=== PATIENT | female | born 1995 | race African-American/Black ===

== ENCOUNTER → 2017-02-18 | Outpatient (CLI) | payer MEDICAID ==
[2015-01-23 08:41] VITALS: BMI 31.5
[~2017-02-18] MED LIST: ABILIFY; ACYC800T99 PO; CHOL100059 PO; ESCI5TAB10 PO; IBUP600T22 PO; LOR5 PO; METH-543 PO; MIRT-1 PO; NO MEDS; NO RTN MEDS; OMEP40CA48 PO; PNV1TABL70 PO; PRED-1 PO; PREDNISON; TRAM-420 PO; TRAZ-156 PO; VENL150C61 PO
[2017-02-18 13:50] LABS: PLATELET COUNT, AUTOMATED 244 K/uL (150-450)
== END ==
LOC: LAB 13:20
PROVIDERS: ATTEND Registered Nurse Psychiatric/Mental Health
DX: F33.2 Major depressive disorder, recurrent severe without psychotic features (principal)
CPT/HCPCS: 36415; 82040; 82247; 82310; 82374; 82435; 82565; 82947; 84075; 84132; 84155; 84295; 84439; 84443; 84450; 84460; 84481; 84520; 84703; 85025

== ENCOUNTER 2017-06-28 13:25 | Emergency (ER) | payer MEDICAID ==
[2015-01-23 08:41] VITALS: Wt 81.6 kg
[2017-06-28] MEDS ORDERED: VENL150C61 PO (13:31)
--- NOTE | 2017-06-28 13:38 | ER Report ---
History and Physical Time Seen By MD: 13:37 Hx. of Stated Complaint: PT REPORTS DIZZINESS, CHEST PRESSURE, SOB/DIFFICULTY BREATHING, AND ALMOST PASSING OUT WHEN SHE PUTS HER ARMS OVER HER HEAD HPI/ROS CHIEF COMPLAINT: Chest pain, dizziness, not feeling well HISTORY OF PRESENT ILLNESS: 21-year-old female patient presents to emergency room with complaint of chest pain, dizziness, not feeling well. Patient states this been going on and really most of her life. She states that seems to been getting worse over the last several months. She states that today she just decided that she was going to be checked out. She states her father did drive her into the emergency room for further evaluation. Patient states that she has chest pain. She states that seems to be the worse when she stands up. She states that she is able to run without any difficulties. She denies having any nausea, vomiting or diarrhea. Patient states she is eating and drinking without any difficulties. Patient states she also feels very lightheaded. She states that also seems to occur when she stands up. She states that if she raises her hands above her head that the chest pain and lightheadedness we'll get worse. She states she's never seen her primary care provider for this. REVIEW OF SYSTEMS: Respiratory: No cough, no dyspnea. Cardiovascular: As noted above Gastrointestinal: No vomiting, no abdominal pain. Musculoskeletal: No back pain. Allergies: Coded Allergies: diphenhydramine HCl (Verified Allergy, Unknown, HYPERACTIVE, 06/28/17) Home Meds Reported Medications Venlafaxine Hcl (EFFEXOR XR) 150 Mg Cap.er.24h, 225 MG PO QDAY 06/28/17 Discontinued Reported Medications Venlafaxine Hcl (EFFEXOR XR) 150 Mg Cap.er.24h, 150 MG PO QDAY 01/28/15 Discontinued Scripts Ibuprofen (IBUPROFEN) 600 Mg Tablet, 1 TAB PO Q6H, #12 TAB Prov:ALVARADO MEJIA RESPIRATORY THERAPY ASSISTANT-BC 01/11/17 Past Medical/Surgical History Patient has a past medical history of heart murmur, alcohol use, anxiety, depression, suicide attempt. Patient has surgical history of tubes in ears. Reviewed Nurses Notes: Yes Hx Smoking: No Smoking Status: Never Smoker Exposure to Second Hand Smoke?: No Hx Alcohol Use: Yes Constitutional Vital Sign - Last 24 Hours 06/28/17 06/28/17 06/28/1719/18 13:29 13:31 13:35 13:45 Temp 99.2 Pulse 80 72 67 Resp 16 15 25 B/P (MAP) 131/80 (97) 131/80 Pulse Ox 96 97 82 O2 Delivery Room Air 06/28/17 06/28/17 06/28/17 06/28/17 13:55 14:00 14:05 14:15 Pulse 79 68 Resp 9 48 11 B/P (MAP) 128/69 (88) Pulse Ox 84 94 94 06/28/17 06/28/17 06/28/17 06/28/17 14:25 14:30 14:35 14:40 Pulse 73 75 Resp 28 6 B/P (MAP) 118/73 (88) Pulse Ox 93 95 95 06/28/17 06/28/17 06/28/17 06/28/17 15:00 15:10 15:20 15:25 Pulse 85 76 79 78 B/P (MAP) 127/80 (96) Pulse Ox 91 95 95 94 06/28/17 06/28/17 06/28/17 15:25 15:30 15:35 Pulse 78 72 78 B/P (MAP) 122/77 (92) Pulse Ox 94 96 94 Intake and Output 06/28/17 06/28/17 06/29/17 15:00 23:00 07:00 Intake Total 1000 ml Balance 1000 ml Physical Exam General Appearance: The patient is alert, has no immediate need for airway protection and no current signs of toxicity. Respiratory: Chest is non tender, lungs are clear to auscultation. Cardiac: regular rate and rhythm Gastrointestinal: Abdomen is soft and non tender, no masses, bowel sounds normal. Musculoskeletal: Neck: Neck is supple and non tender. Extremities have full range of motion and are non tender. Skin: No rashes or lesions. DIFFERENTIAL DIAGNOSIS: After history and physical exam differential diagnosis was considered for chest pain including but not limited to myocardial ischemia, pericarditis pulmonary embolus, chest wall pain, pleural inflammation and pulmonary infectious causes. Medical Decision Making Data Points Result Diagram: 06/28/17 1402 06/28/17 1402 Laboratory Hematology Test 06/28/17 14:00 06/28/17 14:02 Urine Color Yellow Urine Clarity Clear Urine pH 6.0 pH (4.8-9.5) Urine Specific Fraser 1.020 Urine Protein Negative mg/dL (NEGATIVE) Urine Glucose (UA) Negative mg/dL (NEGATIVE) Urine Ketones Negative mg/dL (NEGATIVE) Urine Blood Negative (NEGATIVE) Urine Nitrite Negative (NEGATIVE) Urine Bilirubin Negative (NEGATIVE) Urine Urobilinogen Negative mg/dL (0.2-1.9) Urine Leukocyte Esterase Small (NEGATIVE) Urine RBC 1 /HPF (0-2/HPF) Urine WBC 4 /HPF (0-5/HPF) Urine Squamous Epithelial Cells Many /LPF (</=FEW) Urine Bacteria Negative /HPF (NONE-FEW) Urine Mucus None /HPF (NONE-FEW) Red Blood Count 4.94 M/uL (4.17-5.56) Mean Corpuscular Volume 87.9 fL (80.0-96.0) Mean Corpuscular Hemoglobin 29.5 pg (26.0-33.0) Mean Corpuscular Hemoglobin Concent 33.5 g/dL (32.0-36.0) Red Cell Distribution Width 13.2 % (11.5-14.5) Mean Platelet Volume 7.7 fL (7.2-11.1) Neutrophils (%) (Auto) 51.1 % (39.4-72.5) Lymphocytes (%) (Auto) 31.8 % (17.6-49.6) Monocytes (%) (Auto) 9.2 % (4.1-12.4) Eosinophils (%) (Auto) 6.8 % (0.4-6.7) Basophils (%) (Auto) 1.1 % (0.3-1.4) Nucleated RBC Relative Count (auto) 0.1 /100WBC Neutrophils # (Auto) 3.2 K/uL (2.0-7.4) Lymphocytes # (Auto) 2.0 K/uL (1.3-3.6) Monocytes # (Auto) 0.6 K/uL (0.3-1.0) Eosinophils # (Auto) 0.4 K/uL (0.0-0.5) Basophils # (Auto) 0.1 K/uL (0.0-0.1) Nucleated RBC Absolute Count (auto) 0.01 K/uL Sodium Level 140 mmol/L (137-145) Potassium Level 3.9 mmol/L (3.5-5.0) Chloride Level 104 mmol/L (98-107) Carbon Dioxide Level 24 mmol/L (22-31) Blood Urea Nitrogen 15 mg/dl (7-18) Creatinine 0.80 mg/dl (0.52-1.04) Glomerular Filtration Rate Calc > 60.0 Random Glucose 94 mg/dl (75-110) Calcium Level 9.2 mg/dl (8.4-10.2) Total Bilirubin 0.2 mg/dl (0.2-1.3) Aspartate Amino Transf (AST/SGOT) 23 U/L (0-35) Alanine Aminotransferase (ALT/SGPT) 30 U/L (0-56) Alkaline Phosphatase 74 U/L (0-126) Troponin I < 0.012 ng/ml Total Protein 7.5 gm/dl (6.3-8.2) Albumin 4.0 g/dl (3.5-5.0) Human Chorionic Gonadotropin, Qual Negative (NEGATIVE) Chemistry Test 06/28/17 14:00 06/28/17 14:02 Urine Color Yellow Urine Clarity Clear Urine pH 6.0 pH (4.8-9.5) Urine Specific Fraser 1.020 Urine Protein Negative mg/dL (NEGATIVE) Urine Glucose (UA) Negative mg/dL (NEGATIVE) Urine Ketones Negative mg/dL (NEGATIVE) Urine Blood Negative (NEGATIVE) Urine Nitrite Negative (NEGATIVE) Urine Bilirubin Negative (NEGATIVE) Urine Urobilinogen Negative mg/dL (0.2-1.9) Urine Leukocyte Esterase Small (NEGATIVE) Urine RBC 1 /HPF (0-2/HPF) Urine WBC 4 /HPF (0-5/HPF) Urine Squamous Epithelial Cells Many /LPF (</=FEW) Urine Bacteria Negative /HPF (NONE-FEW) Urine Mucus None /HPF (NONE-FEW) White Blood Count 6.3 k/uL (4.5-11.0) Red Blood Count 4.94 M/uL (4.17-5.56) Hemoglobin 14.6 g/dL (12.0-16.0) Hematocrit 43.4 % (34.0-47.0) Mean Corpuscular Volume 87.9 fL (80.0-96.0) Mean Corpuscular Hemoglobin 29.5 pg (26.0-33.0) Mean Corpuscular Hemoglobin Concent 33.5 g/dL (32.0-36.0) Red Cell Distribution Width 13.2 % (11.5-14.5) Platelet Count 257 K/uL (150-450) Mean Platelet Volume 7.7 fL (7.2-11.1) Neutrophils (%) (Auto) 51.1 % (39.4-72.5) Lymphocytes (%) (Auto) 31.8 % (17.6-49.6) Monocytes (%) (Auto) 9.2 % (4.1-12.4) Eosinophils (%) (Auto) 6.8 % (0.4-6.7) Basophils (%) (Auto) 1.1 % (0.3-1.4) Nucleated RBC Relative Count (auto) 0.1 /100WBC Neutrophils # (Auto) 3.2 K/uL (2.0-7.4) Lymphocytes # (Auto) 2.0 K/uL (1.3-3.6) Monocytes # (Auto) 0.6 K/uL (0.3-1.0) Eosinophils # (Auto) 0.4 K/uL (0.0-0.5) Basophils # (Auto) 0.1 K/uL (0.0-0.1) Nucleated RBC Absolute Count (auto) 0.01 K/uL Glomerular Filtration Rate Calc > 60.0 Calcium Level 9.2 mg/dl (8.4-10.2) Total Bilirubin 0.2 mg/dl (0.2-1.3) Aspartate Amino Transf (AST/SGOT) 23 U/L (0-35) Alanine Aminotransferase (ALT/SGPT) 30 U/L (0-56) Alkaline Phosphatase 74 U/L (0-126) Troponin I < 0.012 ng/ml Total Protein 7.5 gm/dl (6.3-8.2) Albumin 4.0 g/dl (3.5-5.0) Human Chorionic Gonadotropin, Qual Negative (NEGATIVE) Urinalysis Test 06/28/17 14:00 Urine Color Yellow Urine Clarity Clear Urine pH 6.0 pH (4.8-9.5) Urine Specific Fraser 1.020 Urine Protein Negative mg/dL (NEGATIVE) Urine Glucose (UA) Negative mg/dL (NEGATIVE) Urine Ketones Negative mg/dL (NEGATIVE) Urine Blood Negative (NEGATIVE) Urine Nitrite Negative (NEGATIVE) Urine Bilirubin Negative (NEGATIVE) Urine Urobilinogen Negative mg/dL (0.2-1.9) Urine Leukocyte Esterase Small (NEGATIVE) Urine RBC 1 /HPF (0-2/HPF) Urine WBC 4 /HPF (0-5/HPF) Urine Squamous Epithelial Cells Many /LPF (</=FEW) Urine Bacteria Negative /HPF (NONE-FEW) Urine Mucus None /HPF (NONE-FEW) EKG/Imaging EKG Interpretation 12 lead EKG: Rhythm: Sinus rhythm with sinus arrhythmia [place]: normal QRS: normal ST segments: normal Imaging CHEST PA AND LAT History: Dizziness FINDINGS: Comparison studies: None. Tubes and Lines: None. Lungs and pleura: Well aerated. No evidence of focal consolidation or pleural effusions. Mediastinum: normal. Cardiac silhouette: normal . Osseous structures: Unremarkable for age . IMPRESSION: Normal chest Report Dictated By: Oswaldo Mercado MD at 06/28/2017 3:17 PM Report E-Signed By: Oswaldo Mercado MD at 06/28/2017 3:17 PM EXAMINATION: CT HEAD WITHOUT CONTRAST COMPARISON: None available HISTORY: Dizziness. PROCEDURE: Noncontrast CT from the vertex through the skull base. One of the following dose optimization techniques was utilized in the performance of this exam: Automated exposure control; adjustment of the mA and/or kV according to the patient's size; or use of an iterative reconstruction technique. Specific details can be referenced in the facility's radiology CT exam operational policy. FINDINGS: Brain volume: Age-appropriate. Hemorrhage/extra-axial fluid: None. Mass effect/midline shift/edema: None. Ischemia: Armijo-white differentiation is preserved. Ventricles and basal cisterns: Within normal limits. Posterior fossa: Negative. Vessels: Negative. Calvarium, skull base, and scalp: Negative. Visualized sinuses and orbits: Within normal limits. IMPRESSION: Negative age-appropriate noncontrast head CT. Report Dictated By: Laci Driver MD at 06/28/2017 3:14 PM Report E-Signed By: Laci Driver MD at 06/28/2017 3:18 PM ED Course/Re-evaluation ED Course Patient was admitted to exam room, history and physical were obtained. Differential diagnoses were considered. On examination lungs are clear, heart is regular. A CBC, CMP, troponin, EKG, chest x-ray, CT scan of the head were done. The lab results were negative. EKG showed normal sinus rhythm, chest x- ray and CT scan of the head were also negative. I discussed findings with the patient. Patient states that she is frustrated that she's had these symptoms for years and have never found anything wrong with her. I informed her that I do not believe that there is not anything wrong, however there is nothing that needs emergent attention at this time. We will go ahead and have her follow-up with her primary care provider. She is return to emergency room if condition worsens. She is to increase her fluid intake, and be slower when she stands up. Patient verbalized understanding and agreement with plan. Decision to Disposition Date: June 28, 2017 Decision to Disposition Time: 15:25 Depart Departure Latest Vital Signs Vital Signs Date Time Temp Pulse Resp B/P (MAP) Pulse Ox O2 Delivery O2 Flow Rate FiO2 06/28/17 15:35 78 94 06/28/17 15:30 122/77 (92) 06/28/17 14:35 6 06/28/17 13:31 99.2 Room Air Impression: Primary Impression: Chest pain Additional Impression: Dizziness Condition: Improved Disposition: HOME OR SELF-CARE Patient Instructions: Chest Pain (ED) Additional Instructions: Increase fluid intake. Get plenty of rest. Try getting up slowly and see if we can avoid the dizziness. Follow up with your primary care provider in the next week. Return to the ER if condition worsens. Problem Qualifiers Primary Impression: Chest pain Chest pain type: other chest pain Qualified Codes: R07.89 - Other chest pain ZENAIDA DUMONT June 28, 2017 13:38
[2017-06-28] MEDS ORDERED: NS(*) 0.9% 1000 ML BAG 1,000 ML IV ONE (13:45)
[2017-06-28 14:14] LABS: PLATELET COUNT, AUTOMATED 257 K/uL (150-450)
--- NOTE | 2017-06-28 14:57 | EKG ---
FACILITY: [facility] - [place] PATIENT NAME: BRIDGER DIAZ : [id number] MR: [id number] V: [id number] EXAM DATE: ORDERING PHYSICIAN: ZENAIDA DUMONT TECHNOLOGIST: VALENTÍN Test Reason : CP Blood Pressure : / mmHG Vent. Rate : 063 BPM Atrial Rate : 063 BPM P-R Int : 136 ms QRS Dur : 082 ms QT Int : 378 ms P-R-T Axes : 015 067 037 degrees QTc Int : 386 ms Sinus rhythm with marked sinus arrhythmia Otherwise normal ECG No previous ECGs available Confirmed by LUDA MAYBERRY ([id number]) on 06/29/2017 6:41:09 AM Referred By: JULIA Confirmed By:LUDA MAYBERRY
--- NOTE | 2017-06-28 15:22 | RADIOLOGY IMAGING REPORT ---
[place] [facility] [place] NAME: Caitie Monterroso : 1995 MR: [id number] V: [id number] EXAM DATE: ORDERING PHYSICIAN: ZENAIDA DUMONT TECHNOLOGIST: Location: [facility] [place] Patient: Caitie Monterroso : 1995 Visit/Account:[id number] Date of Sevice: 06/28/2017 CHEST PA AND LAT History: Dizziness FINDINGS: Comparison studies: None. Tubes and Lines: None. Lungs and pleura: Well aerated. No evidence of focal consolidation or pleural effusions. Mediastinum: normal. Cardiac silhouette: normal . Osseous structures: Unremarkable for age . IMPRESSION: Normal chest Report Dictated By: Oswaldo Mercado MD at 06/28/2017 3:17 PM Report E-Signed By: Oswaldo Mercado MD at 06/28/2017 3:17 PM WSN:[id number]
--- NOTE | 2017-06-28 15:22 | RADIOLOGY IMAGING REPORT ---
FACILITY: [facility] PATIENT NAME: Caitie Monterroso : 1995 MR: [id number] V: [id number] EXAM DATE: ORDERING PHYSICIAN: ZENAIDA DUMONT TECHNOLOGIST: Location: [facility] - [place] Patient: Caitie Monterroso : 1995 Visit/Account:[id number] Date of Sevice: 06/28/2017 EXAMINATION: CT HEAD WITHOUT CONTRAST COMPARISON: None available HISTORY: Dizziness. PROCEDURE: Noncontrast CT from the vertex through the skull base. One of the following dose optimizat ion techniques was utilized in the performance of this exam: Automated exposure control; adjustment o f the mA and/or kV according to the patient's size; or use of an iterative reconstruction technique. Specific details can be referenced in the facility's radiology CT exam operational policy. FINDINGS: Brain volume: Age-appropriate. Hemorrhage/extra-axial fluid: None. Mass effect/midline shift/edema: None. Ischemia: Armijo-white differentiation is preserved. Ventricles and basal cisterns: Within normal limits. Posterior fossa: Negative. Vessels: Negative. Calvarium, skull base, and scalp: Negative. Visualized sinuses and orbits: Within normal limits. IMPRESSION: Negative age-appropriate noncontrast head CT. Report Dictated By: Laci Driver MD at 06/28/2017 3:14 PM Report E-Signed By: Laci Driver MD at 06/28/2017 3:18 PM WSN:[id number]
[2017-06-28 15:30] VITALS: BP 122/77
== END 2017-06-28 15:27 | disposition home or self-care (01) ==
LOC: ER 13:43
DX: R07.89 Other chest pain (principal); R42 Dizziness and giddiness
CPT/HCPCS: 70450; 71046; 81001; 84484; 84703; 85025; 93005; 96360; 99284; J7030; 82040; 82247; 82310; 82374; 82435; 82565; 82947; 84075; 84132; 84155; 84295; 84450; 84460; 84520

== ENCOUNTER → 2017-07-30 | Outpatient (CLI) | payer MEDICAID ==
[2015-01-23 08:41] VITALS: BMI 31.5
--- NOTE | 2017-07-30 14:07 | RADIOLOGY IMAGING REPORT ---
FACILITY: [facility] - [place] PATIENT NAME: Caitie Monterroso : 1995 MR: [id number] V: [id number] EXAM DATE: ORDERING PHYSICIAN: [facility] TECHNOLOGIST: Location: [facility] Patient: Caitie Monterroso : 1995 Visit/Account:[id number] Date of Sevice: 07/30/2017 Exam type: VENOUS DOPP UPPER BILAT EXTREM History: Thoracic outlet syndrome Comparison: None. Findings: The upper extremity veins were imaged bilaterally including the internal jugular veins, the subclavia n veins, axillary veins, the basilic veins, the brachial veins, cephalic veins, the ulnar veins and t he radial veins revealing no evidence intraluminal thrombi. The veins were compressible and demonstr ated augmentation IMPRESSION: 1. No sonographic evidence of DVT involving the upper extremity veins Report Dictated By: Maureen Ferguson MD at 07/30/2017 1:56 PM Report E-Signed By: Maureen Ferguson MD at 07/30/2017 2:02 PM WSN:[email or web address]
--- NOTE | 2017-07-30 14:10 | RADIOLOGY IMAGING REPORT ---
FACILITY: [facility] PATIENT NAME: Caitie Monterroso : 1995 MR: [id number] V: [id number] EXAM DATE: ORDERING PHYSICIAN: [facility] TECHNOLOGIST: Location: [facility] - [place] Patient: Caitie Monterroso : 1995 Visit/Account:[id number] Date of Sevice: 07/30/2017 Exam type: ARTERIAL BILATERAL UPPER EXT History: Thoracic outlet syndrome Comparison: None. Findings: Triphasic waveforms are seen throughout the upper extremity arterial tree bilaterally other than biph asic waveform in the distal left radial and ulnar arteries. The peak systolic velocities in centimeters per second are as follows Right subclavian artery 87.6 Right axillary artery 43.5 Right brachial artery proximally 65.4, middle 80.7 distal 121 Right radial artery proximally 46.2 distally 46.6 Right ulnar artery proximally 35.7, distally 36.8 Left subclavian artery 82.3 Left x-ray artery 57.2 Left brachial artery proximally 61.5, middle 107, distally 103 Left radial artery proximally 53.1 and distally 41.3 Left ulnar artery 42 proximally and 24.8 distally IMPRESSION: 1. Triphasic waveform seen throughout the upper extremity arterial tree bilaterally other than bipha sic waveforms in the distal left radial and ulnar arteries. Report Dictated By: Maureen Ferguson MD at 07/30/2017 2:02 PM Report E-Signed By: Maureen Ferguson MD at 07/30/2017 2:06 PM WSN:[email or web address]
== END ==
LOC: US 07:04
PROVIDERS: ATTEND Internal Medicine
DX: G54.0 Brachial plexus disorders (principal)
CPT/HCPCS: 93930; 93970

== ENCOUNTER → 2017-08-19 | Outpatient (CLI) | payer MEDICAID ==
[2015-01-23 08:41] VITALS: BMI 31.5
== END ==
LOC: RAD 07:14
PROVIDERS: ATTEND Internal Medicine Cardiovascular Disease
DX: R07.9 Chest pain, unspecified (principal)
CPT/HCPCS: 93306

== ENCOUNTER 2017-08-30 17:19 | Emergency (ER) | payer MEDICAID ==
[2015-01-23 08:41] VITALS: Wt 81.6 kg
[~2017-08-30 17:19] MED LIST changes: -TRAZ-156 PO; +TRAZ50TA34 PO
--- NOTE | 2017-08-30 17:21 | ER Report ---
History and Physical Time Seen By MD: 17:20 HPI/ROS CHIEF COMPLAINT: shoulder dislocation HISTORY OF PRESENT ILLNESS: PT states that a few years ago she injured her right rotator cuff. Since that injury her r shoulder dislocates easily. Pt states she usually can put it back into place on her own. Today has had pain in her shoulder and now feels it is dislocated. pt is unable to elevate her r shoulder secondary to pain. pt has full range of motion of her fingers and her lower arm from elbow down. Pt state she is is ambidextrous. pt recalls no new trauma today. REVIEW OF SYSTEMS: Constitutional: No fever, no chills. Eyes: No discharge. ENT: No sore throat. Cardiovascular: No chest pain, no palpitations. Respiratory: No cough, no shortness of breath. Gastrointestinal: No abdominal pain, no vomiting. Genitourinary: No hematuria. Musculoskeletal: No back pain, + r shoulder pain Skin: No rashes. Neurological: No headache, no numbness Allergies: Coded Allergies: diphenhydramine HCl (Verified Allergy, Unknown, HYPERACTIVE, 08/30/17) Home Meds Reported Medications Midodrine Hcl (MIDODRINE HCL) 10 Mg Tablet, 10 MG PO TID 08/30/17 Mirtazapine (MIRTAZAPINE) 30 Mg Tab.rapdis, 30 MG PO QHS 08/30/17 Venlafaxine Hcl (EFFEXOR XR) 150 Mg Cap.er.24h, 225 MG PO QDAY 06/28/17 Discontinued Reported Medications [mitidrine] No Conflict Check, 1 MG PO TID 08/30/17 Past Medical/Surgical History pmhx: chronic pain syndrome, low blood pressure, frequent syncope episodes, bells palsy Pshx: wisdom teeth Reviewed Nurses Notes: Yes Hx Smoking: Yes Smoking Status: Never Smoker, Light Tobacco Smoker Exposure to Second Hand Smoke?: No Hx Alcohol Use: Yes Constitutional Vital Sign - Last 24 Hours 08/30/17 17:22 Temp 98.5 Pulse 78 Resp 16 B/P (MAP) 130/89 Pulse Ox 98 O2 Delivery Room Air Physical Exam General Appearance: The patient is alert, has no immediate need for airway protection and no signs of toxicity. Eyes: Pupils equal and round no pallor or injection, EOMI ENT: no pharyngeal erythema or exudates, Mucous membranes are moist Respiratory: There are no retractions, lungs are clear to auscultation. Cardiovascular: Regular rate and rhythm. pulses are equal and symmetrical Gastrointestinal: Abdomen is soft and non tender, no masses, bowel sounds normal, no guarding, no rigidity or rebound Neurological: Cranial nerves II-XII grossly intact Skin: Warm and dry, no rashes. Musculoskeletal: Neck is supple non tender, no vertebral tenderness lower extremities are nontender, nonswollen and have full range of motion; r upper extremity no difficulty with supination/pronation at elbow; pt has sensation over deltoid. pt is unable to elevate the r shoulder above 90 degrees DIFFERENTIAL DIAGNOSIS: After history and physical exam differential diagnosis was considered for rotator cuff pain, partially subluxed, dislocated Medical Decision Making EKG/Imaging Imaging no evidence of fx or dislocation. but unable to obtain radiology read at this time. ED Course/Re-evaluation ED Course Will xray. 08/30/2017 5:45:11 pm initial review of xray shoulder does not appear to be dislocated. Will await radiologist read. Will place in shoulder immobilizer while awaiting read. Pt has not seen [facility] in over 2 years. pt will need close follow up secondary to having multiple dislocations at home in the last few years. 08/30/2017 6:02:58 pm images are unable to be sent to radiologist currently due to PAC system is down. will place pt in immobilizer. Pt on reexamination is able to move her shoulder on her own. she can internal rotate, external rotate. Pts is now able to elevate her are fully and equally to her left arm. full abduction/adduction. I suspect pt is intermittently dislocating and subluxing her shoulder. Pt does c/o of a pop that she feels frequently with movement. Pt also has pain with the movement and popping. Pt is willing to follow up with orthopedics. recommend out pt MRI> will place in immobilizer Decision to Disposition Date: Aug 30, 2017 Decision to Disposition Time: 18:05 Depart Departure Latest Vital Signs Vital Signs Date Time Temp Pulse Resp B/P (MAP) Pulse Ox O2 Delivery O2 Flow Rate FiO2 08/30/17 17:22 98.5 78 16 130/89 98 Room Air Impression: Primary Impression: Shoulder pain, acute Condition: Condition Unchanged Disposition: HOME OR SELF-CARE Referrals: [facility] 5 Days Patient Instructions: Rotator Cuff Injury (GEN) Additional Instructions: It is important that you follow up with orthopedics and make them aware of your inability to lift heavy objects with your right arm as well as the frequent dislocations. I suspect you may need a MRI of your shoulder. Motrin (advil, ibuprofen) 600mg every 8 hours as needed for pain and inflammation. Ice and rest Vicodin one every 8-12 hours as needed for severe pain. I am sending you home with two. Problem Qualifiers Primary Impression: Shoulder pain, acute Laterality: right Qualified Codes: M25.511 - Pain in right shoulder DINESH ADAMS DO Aug 30, 2017 17:21
[2017-08-30] MEDS ORDERED: [UNRECOGNIZED DRUG - OTHER] PO (17:31)
[2017-08-30] MEDS ORDERED: MIRT-28 PO (17:31)
[2017-08-30] MEDS ORDERED: MIDO10TA9 PO (17:36)
[2017-08-30 18:00] VITALS: BP 118/85
[2017-08-30] MEDS ORDERED: KETOROLAC 60 MG/2 ML VIAL IM ONE (18:05)
[2017-08-30] MEDS ORDERED: ACET/HYDROC 5/325MG TH ER ONLY 2 TAB/BOTTLE PO ONE (18:05)
--- NOTE | 2017-08-30 19:51 | RADIOLOGY IMAGING REPORT ---
FACILITY: [facility] PATIENT NAME: Caitie Monterroso : 1995 MR: [id number] V: [id number] EXAM DATE: ORDERING PHYSICIAN: DINESH ADAMS TECHNOLOGIST: Location: [facility] - [place] Patient: Caitie Monterroso : 1995 Visit/Account:[id number] Date of Sevice: 08/30/2017 INDICATION: Pain. Dislocation history. DATE: 08/30/2017 5:27 PM TECHNIQUE: SHOULDER MIN 2 VIEWS RIGHT COMPARISON: None FINDINGS: The humeral head articulates normally with the glenoid. The coraco- and acromioclavicular distances are normal. No evidence of fracture or dislocation. IMPRESSION: Radiographically normal shoulder. Report Dictated By: Rama Mcpherson MD at 08/30/2017 5:50 PM Report E-Signed By: Rama Mcpherson MD at 08/30/2017 5:55 PM WSN:[id number]
== END 2017-08-30 18:25 | disposition home or self-care (01) ==
LOC: ER 17:37
DX: M25.511 Pain in right shoulder (principal)
CPT/HCPCS: 73030; 96372; 99283; J1885; L3982

== ENCOUNTER 2018-01-28 17:58 | Emergency (ER) | payer SELFPAY ==
[2015-01-23 08:41] VITALS: Wt 81.6 kg
[~2018-01-28 17:58] MED LIST changes: +MIDO10TA9 PO; +MIRT-28 PO; +[UNRECOGNIZED DRUG - OTHER] PO
--- NOTE | 2018-01-28 18:23 | ER Report ---
History and Physical Time Seen By MD: 18:23 Hx. of Stated Complaint: N/V/D, DIZZINESS AND MIGRAINE HPI/ROS CHIEF COMPLAINT: Dizziness, headache, lightheadedness. HISTORY OF PRESENT ILLNESS: 22-year-old female patient presents to emergency room with complaint of dizziness, lightheadedness, headache, nausea, vomiting diarrhea which been going on for proximal 7 days. Patient states that she feels like the world spinning whenever she closes her eyes. She states that she has pain when she bruits. She states that she hasn't felt well for approximately a week. She states she is also not currently taking her Effexor any of her other medications as her insurance has lapsed and she does not have any insurance through work. She states that she has to wait for the next sinus. As she does not have any insurance at this time. She denies having any fevers or chills. She states she has had diarrhea for the past week. Patient states she is not taking any medication for this. REVIEW OF SYSTEMS: Respiratory: No cough, no dyspnea. Cardiovascular: No chest pain, no palpitations. Gastrointestinal: As noted above. Musculoskeletal: No back pain. Allergies: Coded Allergies: diphenhydramine HCl (Verified Allergy, Unknown, HYPERACTIVE, 01/28/18) Home Meds Active Scripts Nitrofurantoin Monohyd/M-Cryst (MACROBID 100 MG CAPSULE) 100 Mg Capsule, 100 MG PO BID, #13 CAPSULE Prov:ZENAIDA DUMONT [facility] 01/28/18 Reported Medications Midodrine Hcl (MIDODRINE HCL) 10 Mg Tablet, 10 MG PO TID 08/30/17 Mirtazapine (MIRTAZAPINE) 30 Mg Tab.rapdis, 30 MG PO QHS 08/30/17 Venlafaxine Hcl (EFFEXOR XR) 150 Mg Cap.er.24h, 225 MG PO QDAY 06/28/17 Past Medical/Surgical History Patient has a past medical history of a heart murmur, SA node defect, anxiety, depression, suicide attempt. Patient has a surgical history of tubes in ears. Reviewed Nurses Notes: Yes Hx Smoking: Yes Smoking Status: Never Smoker, Light Tobacco Smoker Exposure to Second Hand Smoke?: No Hx Alcohol Use: Yes Constitutional Vital Sign - Last 24 Hours 01/28/18 01/28/18 01/28/18 01/28/18 18:05 18:07 18:28 18:30 Temp 98.6 Pulse 77 76 Resp 20 12 B/P (MAP) 124/78 124/78 (93) 119/72 (88) Pulse Ox 95 98 01/28/18 01/28/18 01/28/18 01/28/18 18:35 19:00 19:05 19:22 Pulse 74 80 Resp 20 0 B/P (MAP) 112/81 (91) 118/88 (98) Pulse Ox 89 95 01/28/18 01/28/18 19:30 19:35 Pulse 66 Resp 34 B/P (MAP) 119/73 (88) Pulse Ox 96 Physical Exam General Appearance: The patient is alert, has no immediate need for airway protection and no current signs of toxicity. Eyes: Pupils equal and round no injection. Extraocular movements intact, patient did have vertical nystagmus. Respiratory: Chest is non tender, lungs are clear to auscultation. Cardiac: regular rate and rhythm Gastrointestinal: Abdomen is soft and tender in left upper quadrant, no masses, bowel sounds normal. Musculoskeletal: Neck: Neck is supple and non tender. Extremities have full range of motion and are non tender. Skin: No rashes or lesions. DIFFERENTIAL DIAGNOSIS: After history and physical exam differential diagnosis was considered for nausea and vomiting including but not limited to gastroenteritis, gastritis, appendicitis, and medication side effect. Medical Decision Making Data Points Result Diagram: 01/28/186 01/28/186 Laboratory Hematology Test 01/28/18 18:06 01/28/18 18:36 Urine Color Yellow Urine Clarity Clear Urine pH 6.0 pH (4.8-9.5) Urine Specific Goode 1.019 Urine Protein Negative mg/dL (NEGATIVE) Urine Glucose (UA) Negative mg/dL (NEGATIVE) Urine Ketones Negative mg/dL (NEGATIVE) Urine Blood Negative (NEGATIVE) Urine Nitrite Negative (NEGATIVE) Urine Bilirubin Negative (NEGATIVE) Urine Urobilinogen Negative mg/dL (0.2-1.9) Urine Leukocyte Esterase Large (NEGATIVE) Urine RBC 1 /HPF (0-2/HPF) Urine WBC 92 /HPF (0-5/HPF) Urine Squamous Epithelial Cells Many /LPF (</=FEW) Urine Bacteria Few /HPF (NONE-FEW) Urine Mucus None /HPF (NONE-FEW) Red Blood Count 4.92 M/uL (4.17-5.56) Mean Corpuscular Volume 86.8 fL (80.0-96.0) Mean Corpuscular Hemoglobin 29.0 pg (26.0-33.0) Mean Corpuscular Hemoglobin Concent 33.4 g/dL (32.0-36.0) Red Cell Distribution Width 13.8 % (11.5-14.5) Mean Platelet Volume 8.0 fL (7.2-11.1) Neutrophils (%) (Auto) 62.0 % (39.4-72.5) Lymphocytes (%) (Auto) 26.3 % (17.6-49.6) Monocytes (%) (Auto) 6.2 % (4.1-12.4) Eosinophils (%) (Auto) 4.9 % (0.4-6.7) Basophils (%) (Auto) 0.6 % (0.3-1.4) Nucleated RBC Relative Count (auto) 0.0 /100WBC Neutrophils # (Auto) 5.3 K/uL (2.0-7.4) Lymphocytes # (Auto) 2.3 K/uL (1.3-3.6) Monocytes # (Auto) 0.5 K/uL (0.3-1.0) Eosinophils # (Auto) 0.4 K/uL (0.0-0.5) Basophils # (Auto) 0.0 K/uL (0.0-0.1) Nucleated RBC Absolute Count (auto) 0.00 K/uL Sodium Level 138 mmol/L (137-145) Potassium Level 3.8 mmol/L (3.5-5.0) Chloride Level 106 mmol/L (98-107) Carbon Dioxide Level 23 mmol/L (22-31) Blood Urea Nitrogen 11 mg/dl (7-18) Creatinine 0.70 mg/dl (0.52-1.04) Glomerular Filtration Rate Calc > 60.0 Random Glucose 101 mg/dl (75-110) Calcium Level 8.7 mg/dl (8.4-10.2) Total Bilirubin < 0.1 mg/dl (0.2-1.3) Aspartate Amino Transf (AST/SGOT) 16 U/L (0-35) Alanine Aminotransferase (ALT/SGPT) 17 U/L (0-56) Alkaline Phosphatase 63 U/L (0-126) Total Protein 6.7 g/dl (6.3-8.2) Albumin 3.5 g/dl (3.5-5.0) Amylase Level 68 U/L (0-110) Lipase 41 U/L (23-300) Human Chorionic Gonadotropin, Qual Negative (NEGATIVE) Helicobacter pylori IgG Antibody Negative (NEGATIVE) Chemistry Test 01/28/18 18:06 01/28/18 18:36 Urine Color Yellow Urine Clarity Clear Urine pH 6.0 pH (4.8-9.5) Urine Specific Goode 1.019 Urine Protein Negative mg/dL (NEGATIVE) Urine Glucose (UA) Negative mg/dL (NEGATIVE) Urine Ketones Negative mg/dL (NEGATIVE) Urine Blood Negative (NEGATIVE) Urine Nitrite Negative (NEGATIVE) Urine Bilirubin Negative (NEGATIVE) Urine Urobilinogen Negative mg/dL (0.2-1.9) Urine Leukocyte Esterase Large (NEGATIVE) Urine RBC 1 /HPF (0-2/HPF) Urine WBC 92 /HPF (0-5/HPF) Urine Squamous Epithelial Cells Many /LPF (</=FEW) Urine Bacteria Few /HPF (NONE-FEW) Urine Mucus None /HPF (NONE-FEW) White Blood Count 8.6 k/uL (4.5-11.0) Red Blood Count 4.92 M/uL (4.17-5.56) Hemoglobin 14.3 g/dL (12.0-16.0) Hematocrit 42.7 % (34.0-47.0) Mean Corpuscular Volume 86.8 fL (80.0-96.0) Mean Corpuscular Hemoglobin 29.0 pg (26.0-33.0) Mean Corpuscular Hemoglobin Concent 33.4 g/dL (32.0-36.0) Red Cell Distribution Width 13.8 % (11.5-14.5) Platelet Count 246 K/uL (150-450) Mean Platelet Volume 8.0 fL (7.2-11.1) Neutrophils (%) (Auto) 62.0 % (39.4-72.5) Lymphocytes (%) (Auto) 26.3 % (17.6-49.6) Monocytes (%) (Auto) 6.2 % (4.1-12.4) Eosinophils (%) (Auto) 4.9 % (0.4-6.7) Basophils (%) (Auto) 0.6 % (0.3-1.4) Nucleated RBC Relative Count (auto) 0.0 /100WBC Neutrophils # (Auto) 5.3 K/uL (2.0-7.4) Lymphocytes # (Auto) 2.3 K/uL (1.3-3.6) Monocytes # (Auto) 0.5 K/uL (0.3-1.0) Eosinophils # (Auto) 0.4 K/uL (0.0-0.5) Basophils # (Auto) 0.0 K/uL (0.0-0.1) Nucleated RBC Absolute Count (auto) 0.00 K/uL Glomerular Filtration Rate Calc > 60.0 Calcium Level 8.7 mg/dl (8.4-10.2) Total Bilirubin < 0.1 mg/dl (0.2-1.3) Aspartate Amino Transf (AST/SGOT) 16 U/L (0-35) Alanine Aminotransferase (ALT/SGPT) 17 U/L (0-56) Alkaline Phosphatase 63 U/L (0-126) Total Protein 6.7 g/dl (6.3-8.2) Albumin 3.5 g/dl (3.5-5.0) Amylase Level 68 U/L (0-110) Lipase 41 U/L (23-300) Human Chorionic Gonadotropin, Qual Negative (NEGATIVE) Helicobacter pylori IgG Antibody Negative (NEGATIVE) Urinalysis Test 01/28/18 18:06 Urine Color Yellow Urine Clarity Clear Urine pH 6.0 pH (4.8-9.5) Urine Specific Goode 1.019 Urine Protein Negative mg/dL (NEGATIVE) Urine Glucose (UA) Negative mg/dL (NEGATIVE) Urine Ketones Negative mg/dL (NEGATIVE) Urine Blood Negative (NEGATIVE) Urine Nitrite Negative (NEGATIVE) Urine Bilirubin Negative (NEGATIVE) Urine Urobilinogen Negative mg/dL (0.2-1.9) Urine Leukocyte Esterase Large (NEGATIVE) Urine RBC 1 /HPF (0-2/HPF) Urine WBC 92 /HPF (0-5/HPF) Urine Squamous Epithelial Cells Many /LPF (</=FEW) Urine Bacteria Few /HPF (NONE-FEW) Urine Mucus None /HPF (NONE-FEW) ED Course/Re-evaluation ED Course Patient was admitted in exam room, history and physical were obtained. Differential diagnoses were considered. On examination lungs are clear, heart regular, abdomen soft nontender. Patient does have some vertical nystagmus. A CBC, CMP, urinalysis were done. The labs were unremarkable except for positive urinalysis for a urinary tract infection. A culture was ordered. I discussed the findings with the patient. His my belief that the majority of the symptoms are related to withdrawal from her psych meds. I believe that we do need to get those reinstated. However with patient not having any insurance I feel that would be difficult without assistance. I discussed this with the patient who verbalized understanding and agreement. Due to the timing the evening and if the [facility] was still open. I did call down there and discussed with them. They state they were not able to get her in tonight, however the more than happy to see her after being in the ER. I did recommend follow-up with the [facility]. He states that they believe that there was ability to get access to the patient assistance program. I discussed this with patient who verbalized understanding and agreement. We will go ahead and treat her urinary tract infection. Patient is to follow-up and call to make an appointment tomorrow. She verbalized understanding and agreement with plan. Decision to Disposition Date: Jan 28, 2018 Decision to Disposition Time: 19:34 Depart Departure Latest Vital Signs Vital Signs Date Time Temp Pulse Resp B/P (MAP) Pulse Ox O2 Delivery O2 Flow Rate FiO2 01/28/18 19:35 66 34 96 01/28/18 19:30 119/73 (88) 01/28/18 18:05 98.6 Impression: Primary Impression: UTI (urinary tract infection) Additional Impression: Medication withdrawal Condition: Improved Disposition: HOME OR SELF-CARE New Scripts Nitrofurantoin Monohyd/M-Cryst (MACROBID 100 MG CAPSULE) 100 Mg Capsule 100 MG PO BID, #13 CAPSULE Prov: JULIAZENAIDA FNP 01/28/18 Patient Instructions: Urinary Tract Infection in Women (ED) Additional Instructions: Increase fluid intake. Get plenty of rest. Follow up with [facility], as I talked with the [facility], they may be able to help with getting your medications. Return to the ER if condition worsens, or you are having suicidal ideation. Take the antibiotics as directed. We are culturing the urine and will call if we need to change antibiotics. Problem Qualifiers Primary Impression: UTI (urinary tract infection) Urinary tract infection type: acute cystitis Hematuria presence: without hematuria Qualified Codes: N30.00 - Acute cystitis without hematuria Additional Impression: Medication withdrawal Substance type: other psychoactive substance Qualified Codes: F19.939 - Other psychoactive substance use, unspecified with withdrawal, unspecified ZENAIDA DUMONT Jan 28, 2018 18:23
[2018-01-28] MEDS ORDERED: NS(*) 0.9% 1000 ML BAG 1,000 ML IV ONE (18:30)
[2018-01-28 18:44] LABS: PLATELET COUNT, AUTOMATED 246 K/uL (150-450)
[2018-01-28 19:30] VITALS: BP 119/73
[2018-01-28] MEDS ORDERED: NITROFURANTOIN MONO 100 MG PO ONE (19:30)
[2018-01-28] MEDS ORDERED: NITR-105 PO (19:32)
== END 2018-01-28 19:44 | disposition home or self-care (01) ==
LOC: ER 18:26
DX: N30.00 Acute cystitis without hematuria (principal); F19.939 Other psychoactive substance use, unspecified with withdrawal, unspecified
CPT/HCPCS: 81001; 82150; 83690; 84703; 85025; 86677; 87088; 96360; 99283; J7030; 82040; 82247; 82310; 82374; 82435; 82565; 82947; 84075; 84132; 84155; 84295; 84450; 84460; 84520; 87077; 87186

== ENCOUNTER 2018-02-10 21:00 | Emergency (ER) | payer SELFPAY ==
[2015-01-23 08:41] VITALS: Wt 88.5 kg
[~2018-02-10 21:00] MED LIST changes: +ACYC-50 PO; -MIRT-28 PO; +MIRT30TA10 PO; +NITR-105 PO; +SULF-198 PO
--- NOTE | 2018-02-10 21:03 | ER Report ---
History and Physical Time Seen By MD: 21:02 HPI/ROS CHIEF COMPLAINT: Persistent chest pain HISTORY OF PRESENT ILLNESS: Patient was seen on February 04 for "chest pain". Patient contact from that visit was reviewed. History states patient has had chest pain for "most of her life". She has a history of atrial septal defect but has not had a complete workup due to insurance reasons. Workup at that time included a complete cardiac evaluation along with d-dimer troponin EKG chest x- ray H pylori screening which were all negative. Patient was felt to have inflammatory chest wall pain. She was instructed to take ibuprofen and follow up with her primary care provider. Patient states that the pain seems to be getting worse. She does have a follow-up appointment with her fruit inspector in a few weeks for reevaluation of Anat septal defect. 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 It seemed to make her symptoms worse. She reports intermittent random fevers however no specific infectious type symptoms such as runny nose cough congestion or headache. She also states she's having episodes of blurry vision. He states that she seen her primary care provider in the past for this but states that they're unable to figure out the cause of her discomfort. For this reason she presents to the emergency department for evaluation. REVIEW OF SYSTEMS: Constitutional: No fever, no chills. Eyes: No discharge. ENT: No sore throat. Cardiovascular: Chest wall pain Respiratory: No cough, no shortness of breath. Gastrointestinal: No abdominal pain, no vomiting. Genitourinary: No hematuria. Musculoskeletal: No back pain. Skin: No rashes. Neurological: No headache. Allergies: Coded Allergies: No Known Drug Allergies (Unverified , 02/10/18) Home Meds Discontinued Reported Medications Acyclovir (ACYCLOVIR) 400 Mg Tablet, PO TID, TAB 02/04/18 Sulfamethoxazole/Trimet 800-160 Mg Tab (BACTRIM DS TABLET) 1 Each Tablet, 1 TAB PO Q12H, TAB 02/04/18 Midodrine Hcl (MIDODRINE HCL) 10 Mg Tablet, 10 MG PO TID 08/30/17 Mirtazapine (MIRTAZAPINE) 30 Mg Tab.rapdis, 30 MG PO QHS 08/30/17 Venlafaxine Hcl (EFFEXOR XR) 150 Mg Cap.er.24h, 225 MG PO QDAY 06/28/17 Discontinued Scripts Nitrofurantoin Monohyd/M-Cryst (MACROBID 100 MG CAPSULE) 100 Mg Capsule, 100 MG PO BID, #13 CAPSULE Prov:ZENAIDA DUMONT [employer] 01/28/18 Past Medical/Surgical History Patient has a past medical history of a heart murmur, SA node defect, anxiety, depression, suicide attempt. Patient has a surgical history of tubes in ears. Hx Smoking: Yes Smoking Status: Never Smoker, Light Tobacco Smoker Exposure to Second Hand Smoke?: No Hx Alcohol Use: Yes Constitutional Vital Sign - Last 24 Hours 02/10/18 02/10/18 02/10/18 02/10/18 21:05 21:06 21:15 21:30 Temp 98.5 Pulse 83 73 76 Resp 16 11 17 B/P (MAP) 102/68 102/68 (79) 110/72 (85) 108/80 (89) Pulse Ox 94 96 93 O2 Delivery Room Air 02/10/18 21:45 Pulse 69 Resp 14 B/P (MAP) 104/64 (77) Pulse Ox 94 Physical Exam General/Constitutional: Patient is awake, alert, nontoxic and in no acute respiratory distress. Head: Normocephalic and atraumatic. Eyes: Conjunctival clear, Pupils are equal and reactive to light. Extraocular muscles are intact and symmetrical. Sclera are clear and anicteric. Ears:External canals are clear. Tympanic membranes are clear with normal landmarks and light reflex. Nares: No rhinorrhea or bleeding. Turbinates are pink and moist. Oropharyngeal: Mucous membranes are moist. There is no pharyngeal erythema or exudate. There are no palatal petechiae. Uvula is midline and symmetrical. Neck: Supple, no adenopathy. Cardiovascular: Heart is regular rate and rhythm without audible murmurs, rubs or gallops. She has reproducible chest wall tenderness to pressure over the sternum. This reproduces her chest pain Pulmonary: Lungs are clear to auscultation bilaterally. There are no wheezes, rales, or rhonchi. Chest rise is symmetrical Abdomen: Soft, nontender, no guarding or peritoneal signs. Extremities: No gross deformities, No peripheral cyanosis. Able to move all 4 extremities. Neuro: Alert and oriented X3, Skin: No rashes, skin is warm dry and well perfused. Medical Decision Making Data Points Result Diagram: 02/10/18211202/10/182112 Laboratory Hematology Test 02/10/18 21:13 Red Blood Count 4.89 M/uL (4.17-5.56) Mean Corpuscular Volume 85.9 fL (80.0-96.0) Mean Corpuscular Hemoglobin 28.7 pg (26.0-33.0) Mean Corpuscular Hemoglobin Concent 33.4 g/dL (32.0-36.0) Red Cell Distribution Width 14.1 % (11.5-14.5) Mean Platelet Volume 7.5 fL (7.2-11.1) Neutrophils (%) (Auto) 57.0 % (39.4-72.5) Lymphocytes (%) (Auto) 27.6 % (17.6-49.6) Monocytes (%) (Auto) 8.5 % (4.1-12.4) Eosinophils (%) (Auto) 5.7 % (0.4-6.7) Basophils (%) (Auto) 1.2 % (0.3-1.4) Nucleated RBC Relative Count (auto) 0.1 /100WBC Neutrophils # (Auto) 3.9 K/uL (2.0-7.4) Lymphocytes # (Auto) 1.9 K/uL (1.3-3.6) Monocytes # (Auto) 0.6 K/uL (0.3-1.0) Eosinophils # (Auto) 0.4 K/uL (0.0-0.5) Basophils # (Auto) 0.1 K/uL (0.0-0.1) Nucleated RBC Absolute Count (auto) 0.01 K/uL Sodium Level 141 mmol/L (137-145) Potassium Level 3.7 mmol/L (3.5-5.0) Chloride Level 106 mmol/L (98-107) Carbon Dioxide Level 27 mmol/L (22-31) Blood Urea Nitrogen 8 mg/dl (7-18) Creatinine 0.70 mg/dl (0.52-1.04) Glomerular Filtration Rate Calc > 60.0 Random Glucose 86 mg/dl (75-110) Calcium Level 8.9 mg/dl (8.4-10.2) Total Bilirubin 0.2 mg/dl (0.2-1.3) Aspartate Amino Transf (AST/SGOT) 18 U/L (0-35) Alanine Aminotransferase (ALT/SGPT) 24 U/L (0-56) Alkaline Phosphatase 66 U/L (0-126) Troponin I < 0.012 ng/ml Total Protein 7.3 g/dl (6.3-8.2) Albumin 3.7 g/dl (3.5-5.0) Human Chorionic Gonadotropin, Qual Negative (NEGATIVE) Chemistry Test 02/10/18 21:13 White Blood Count 6.9 k/uL (4.5-11.0) Red Blood Count 4.89 M/uL (4.17-5.56) Hemoglobin 14.0 g/dL (12.0-16.0) Hematocrit 42.0 % (34.0-47.0) Mean Corpuscular Volume 85.9 fL (80.0-96.0) Mean Corpuscular Hemoglobin 28.7 pg (26.0-33.0) Mean Corpuscular Hemoglobin Concent 33.4 g/dL (32.0-36.0) Red Cell Distribution Width 14.1 % (11.5-14.5) Platelet Count 285 K/uL (150-450) Mean Platelet Volume 7.5 fL (7.2-11.1) Neutrophils (%) (Auto) 57.0 % (39.4-72.5) Lymphocytes (%) (Auto) 27.6 % (17.6-49.6) Monocytes (%) (Auto) 8.5 % (4.1-12.4) Eosinophils (%) (Auto) 5.7 % (0.4-6.7) Basophils (%) (Auto) 1.2 % (0.3-1.4) Nucleated RBC Relative Count (auto) 0.1 /100WBC Neutrophils # (Auto) 3.9 K/uL (2.0-7.4) Lymphocytes # (Auto) 1.9 K/uL (1.3-3.6) Monocytes # (Auto) 0.6 K/uL (0.3-1.0) Eosinophils # (Auto) 0.4 K/uL (0.0-0.5) Basophils # (Auto) 0.1 K/uL (0.0-0.1) Nucleated RBC Absolute Count (auto) 0.01 K/uL Glomerular Filtration Rate Calc > 60.0 Calcium Level 8.9 mg/dl (8.4-10.2) Total Bilirubin 0.2 mg/dl (0.2-1.3) Aspartate Amino Transf (AST/SGOT) 18 U/L (0-35) Alanine Aminotransferase (ALT/SGPT) 24 U/L (0-56) Alkaline Phosphatase 66 U/L (0-126) Troponin I < 0.012 ng/ml Total Protein 7.3 g/dl (6.3-8.2) Albumin 3.7 g/dl (3.5-5.0) Human Chorionic Gonadotropin, Qual Negative (NEGATIVE) EKG/Imaging EKG Interpretation EKG shows normal sinus rhythm with sinus arrhythmia. This was compared to EKGs from February 04 as well as June 28 in 2017 no significant changes were found. Monitor Interpretation: Normal Sinus Rhythm Imaging FACILITY: [facility] [place] PATIENT NAME: Caitie Monterroso : 1995 MR: [id number] V: [id number] EXAM DATE: ORDERING PHYSICIAN: SALBADOR JULES TECHNOLOGIST: Location: [facility] Patient: Caitie Monterroso : 1995 Visit/Account:[id number] Date of Sevice: 02/10/2018 Examination: CHEST PA AND LAT Comparison: 02/04/2018 and earlier. History: Chest Pain Findings: Cardiac and hilar contour size is within normal limits. No consol idation, nodule, or peribronchial inflammation. No pneumothorax, edema, or effusion. Osseous structures are intact. IMPRESSION: Negative chest. Report Dictated By: Laci Driver MD at 02/10/2018 9:35 PM Report E-Signed By: Laci Driver MD at 02/10/2018 9:37 PM [email or web address] ED Course/Re-evaluation Clinical Indication for ER IV: Hydration, IV Access ED Course 02/10/2018 9:36:51 pm patient with chest wall pain likely musculoskeletal in origin. Plan at this time will be cardiac workup including a single troponin. EKG chest x-ray. We'll give IV Toradol for pain. Decision to Disposition Date: Feb 10, 2018 Decision to Disposition Time: 21:57 Depart Departure Latest Vital Signs Vital Signs Date Time Temp Pulse Resp B/P (MAP) Pulse Ox O2 Delivery O2 Flow Rate FiO2 02/10/18 21:45 69 14 104/64 (77) 94 02/10/18 21:05 98.5 Room Air Impression: Primary Impression: Costochondral chest pain Condition: Improved Disposition: HOME OR SELF-CARE New Scripts No Active Prescriptions or Reported Meds Patient Instructions: Costochondritis (ED) Additional Instructions: Lortab 1 tablet every 6 hours as needed for pain. He may switch to either Tylenol or Motrin after you take this medication. Keep your follow-up appointment with cardiology in the next 2 weeks. SALBADOR JULES MD Feb 10, 2018 21:03
[2018-02-10 21:20] LABS: PLATELET COUNT, AUTOMATED 285 K/uL (150-450)
--- NOTE | 2018-02-10 21:28 | EKG ---
FACILITY: [facility] - [place] PATIENT NAME: BRIDGER DIAZ : [id number] MR: [id number] V: [id number] EXAM DATE: ORDERING PHYSICIAN: SALBADOR JULES TECHNOLOGIST: ELIAN Test Reason : CP Blood Pressure : / mmHG Vent. Rate : 074 BPM Atrial Rate : 074 BPM P-R Int : 156 ms QRS Dur : 080 ms QT Int : 380 ms P-R-T Axes : 016 081 019 degrees QTc Int : 421 ms Normal sinus rhythm with sinus arrhythmia Inverted or flattened T V 1-4 probably age related although this is more prominent than on previous E CG. Electrical interference. When compared with ECG of 04-FEB-2018 07:15, T wave changes are more prominent. Confirmed by MILTON BORGES ([id number]) on 02/11/2018 3:05:28 AM Referred By: Confirmed By:MILTON BORGES
--- NOTE | 2018-02-10 21:42 | RADIOLOGY IMAGING REPORT ---
FACILITY: [facility] PATIENT NAME: Caitie Monterroso : 1995 MR: [id number] V: [id number] EXAM DATE: ORDERING PHYSICIAN: SALBADOR JULES TECHNOLOGIST: Location: [facility] Patient: Caitie Monterroso : 1995 Visit/Account:[id number] Date of Sevice: 02/10/2018 Examination: CHEST PA AND LAT Comparison: 02/04/2018 and earlier. History: Chest Pain Findings: Cardiac and hilar contour size is within normal limits. No consolidation, nodule, or perib ronchial inflammation. No pneumothorax, edema, or effusion. Osseous structures are intact. IMPRESSION: Negative chest. Report Dictated By: Laci Driver MD at 02/10/2018 9:35 PM Report E-Signed By: Laci Driver MD at 02/10/2018 9:37 PM [email or web address]
[2018-02-10 21:45] VITALS: BP 104/64
[2018-02-10] MEDS ORDERED: KETOROLAC 15 MG/ML VIAL IVP ONE (21:45)
[2018-02-10] MEDS ORDERED: APAP/HYDROCODONE 325/5 TAB PO ONE (22:00)
== END 2018-02-10 22:13 | disposition home or self-care (01) ==
LOC: ER 21:09
DX: M94.0 Chondrocostal junction syndrome [Tietze] (principal)
CPT/HCPCS: 71046; 84484; 84703; 85025; 93005; 96374; 99284; J1885; 82040; 82247; 82310; 82374; 82435; 82565; 82947; 84075; 84132; 84155; 84295; 84450; 84460; 84520

== ENCOUNTER 2018-05-07 16:12 | Emergency (ER) | payer SELFPAY ==
[2015-01-23 08:41] VITALS: Wt 94.3 kg
--- NOTE | 2018-05-07 16:19 | ER Report ---
History and Physical Time Seen By MD: 16:18 HPI/ROS CHIEF COMPLAINT: Left proximal thigh swelling and discomfort HISTORY OF PRESENT ILLNESS: Patient is a 22-year-old female here with complaints of left proximal thigh swelling which is been intermittent for the past month. Patient also reports having a swollen nodule distal mid femur just proximal to the patella with subjective warmth to the touch. Patient is afebrile, hemodynamically stable at time of evaluation. Patient denies trauma to the site. REVIEW OF SYSTEMS: Constitutional: No fever, no chills. Eyes: No discharge. ENT: No sore throat. Cardiovascular: No chest pain, no palpitations. Respiratory: No cough, no shortness of breath. Gastrointestinal: No abdominal pain, no vomiting. Genitourinary: No hematuria. Musculoskeletal: + Left mid thigh discomfort with subjective swelling Skin: Non-erythematous, no ecchymosis present Neurological: No headache. Neurovascular exam intact distal to the site of d iscomfort Allergies: Coded Allergies: No Known Drug Allergies (Unverified , 05/07/18) Home Meds No Active Prescriptions or Reported Meds Hx Smoking: Yes Smoking Status: Never Smoker, Light Tobacco Smoker Exposure to Second Hand Smoke?: No Hx Alcohol Use: Yes Constitutional Vital Sign - Last 24 Hours 05/07/18 16:39 Temp 98.1 Pulse 87 Resp 14 B/P (MAP) 123/97 Pulse Ox 95 O2 Delivery Room Air Physical Exam General Appearance: The patient is alert, has no immediate need for airway protection and no signs of toxicity. No acute distress Eyes: Pupils equal and round no pallor or injection. ENT, Mouth: Mucous membranes are moist. Respiratory: There are no retractions, lungs are clear to auscultation. Cardiovascular: Regular rate and rhythm. Gastrointestinal: Abdomen is soft and non tender, no masses, bowel sounds normal. Neurological: No focal neurological deficits present on examination Skin: No erythema or ecchymosis on physical exam Musculoskeletal: Neck is supple non tender. Tenderness on palpation of the mid and distal thigh without appreciable swelling or erythema DIFFERENTIAL DIAGNOSIS: After history and physical exam differential diagnosis was considered for contusion, bursitis, trauma, thrombophlebitis, DVT Medical Decision Making EKG/Imaging Imaging No acute DVT on duplex imaging of the left lower extremity ED Course/Re-evaluation ED Course Patient is a 22-year-old female here with complaints of left lower extremity proximal discomfort and subjective swelling. I was unable to appreciate erythema or ecchymosis to the site. Patient is afebrile, hemodynamically stable at time of evaluation. Duplex imaging of the extremity was completed to rule out DVT. Physical exam was unremarkable as previously noted. Recommend close PCP follow- up for reevaluation and further care if indicated. Return precautions provided. Decision to Disposition Date: May 07, 2018 Decision to Disposition Time: 17:52 Depart Departure Latest Vital Signs Vital Signs Date Time Temp Pulse Resp B/P (MAP) Pulse Ox O2 Delivery O2 Flow Rate FiO2 05/07/18 16:39 98.1 87 14 123/97 95 Room Air Impression: Primary Impression: Leg pain, left Condition: Improved Disposition: HOME OR SELF-CARE New Scripts No Active Prescriptions or Reported Meds Patient Instructions: Leg Edema (ED) Additional Instructions: Please drink plenty of water. Please apply ice, elevate, take NSAIDs as needed for control of inflammation, swelling. No acute clots were identified in the vasculature of the left leg. Please return promptly if you develop chest pain, difficulty breathing, increased pain or swelling. Please follow-up with your family doctor in the next 24-48 hours. NAS TORRES DO May 07, 2018 16:19
--- NOTE | 2018-05-07 17:48 | RADIOLOGY IMAGING REPORT ---
FACILITY: [facility] PATIENT NAME: Caitie Monterroso : 1995 MR: [id number] V: [id number] EXAM DATE: ORDERING PHYSICIAN: NAS TORRES TECHNOLOGIST: Location: [facility] Patient: Caitie Monterroso : 1995 Visit/Account:[id number] Date of Sevice: 05/07/2018 US VENOUS LOWER EXT LT HISTORY: swelling, pain proximal to knee Concern for deep venous thrombus. COMPARISON: None. FINDINGS: Grayscale, duplex and color Doppler interrogation of the left lower extremity deep veins from common femoral vein to proximal calf was completed. Compression was performed where it was possible. The rig ht common femoral vein was not assessed. Common femoral vein - Negative. Femoral vein - Negative. Deep femoral vein - Negative. Popliteal vein - Negative. Visualized deep calf veins - Negative. Popliteal fossa: Negative. IMPRESSION: No evidence of acute deep venous thrombosis in the visualized veins of the left lower extremity. Report Dictated By: José Miguel Kothari at 05/07/2018 5:43 PM Report E-Signed By: José Miguel Kothari at 05/07/2018 5:43 PM [id number]
[2018-05-07 17:58] VITALS: BP 100/74
== END 2018-05-07 18:01 | disposition home or self-care (01) ==
LOC: ER 16:23
DX: M79.652 Pain in left thigh (principal)
CPT/HCPCS: 99284

== ENCOUNTER → 2018-06-15 | Outpatient (CLI) | payer MEDICAID ==
[2015-01-23 08:41] VITALS: BMI 31.5
[~2018-06-15] MED LIST changes: +DOXY1TAB3 PO; +ONDA4TAB97 PO; +PREN-127 PO
[2018-06-15 16:04] LABS: PLATELET COUNT, AUTOMATED 311 K/uL (150-450)
== END ==
LOC: LAB 15:12
PROVIDERS: ATTEND Obstetrics & Gynecology
DX: Z34.91 Encounter for supervision of normal pregnancy, unspecified, first trimester (principal)
CPT/HCPCS: 36415; 81001; 85025; 86592; 86703; 86762; 86803; 86850; 86900; 86901; 87088; 87340

== ENCOUNTER 2018-06-19 08:54 | Emergency (ER) | payer SELFPAY ==
[2015-01-23 08:41] VITALS: Wt 90.7 kg
--- NOTE | 2018-06-19 08:58 | ER Report ---
History and Physical Time Seen By MD: 08:58 HPI/ROS CHIEF COMPLAINT: Nausea, vomiting HISTORY OF PRESENT ILLNESS: Patient is a 22-year-old female approximately 7-8 weeks gestation here with complaints of nausea, vomiting for the past several da ys. Patient reports that she has been unable to keep down most of her food and fluids. Patient was prescribed ondansetron however she was unable to fill it due to cost restrictions. Patient reports that she does have one living child at approximately 5 years old, prior history of 2 miscarriages. Denies fevers, chills, recent illnesses, vaginal discharge or vaginal bleeding. Symptoms have been persistent for the past several days. Patient is hemodynamically stable at time of evaluation. REVIEW OF SYSTEMS: Constitutional: No fever, no chills. Eyes: No discharge. ENT: No sore throat. Cardiovascular: No chest pain, no palpitations. Respiratory: No cough, no shortness of breath. Gastrointestinal: + mild epigastric abdominal pain, + nausea and vomiting. Genitourinary: No hematuria, dysuria or vaginal bleeding Musculoskeletal: No back pain. Skin: No rashes. Neurological: No headache. Allergies: Coded Allergies: No Known Drug Allergies (Unverified , 05/07/18) Home Meds Active Scripts Ondansetron Hcl (ZOFRAN) 4 Mg Tablet, 4 MG PO Q6H PRN for NAUSEA/VOMITING, #20 TAB 0 Refills Prov:JEANETTE DAVALOS DO 06/17/18 Doxylamine/Pyridoxine Hcl (DICLEGIS DR 10-10 MG TABLET) 1 Each Tablet.dr, 1 EACH PO DIRECTED, #60 TAB 1 Refill 2 tabs PO QHS if still having nausea may take 1 tab in the morning and 1 tab at noon (MAX 4 tabs daily) Prov:MARIVEL STALEY MD 06/15/18 Vits W-Ca,Fe,Fa(<1MG) ( VITAMINS) 1 Each Tablet, 1 EACH PO DAILY, #90 TAB 3 Refills Prov:MARIVEL STALEY MD 06/15/18 Hx Smoking: Yes Smoking Status: Never Smoker, Light Tobacco Smoker Exposure to Second Hand Smoke?: No Hx Alcohol Use: Yes Constitutional Vital Sign - Last 24 Hours 06/19/18 08:58 Temp 97.7 Pulse 76 Resp 18 B/P (MAP) 123/75 Pulse Ox 95 O2 Delivery Room Air Physical Exam General Appearance: The patient is alert, has no immediate need for airway protection and no signs of toxicity. No acute distress Eyes: Pupils equal and round no pallor or injection. ENT, Mouth: Mucous membranes are moist. Respiratory: There are no retractions, lungs are clear to auscultation. Cardiovascular: Regular rate and rhythm. Gastrointestinal: Abdomen is soft and non tender, no masses, bowel sounds normal. Neurological: No focal deficits Skin: Warm and dry, no rashes. Musculoskeletal: Neck is supple non tender. Extremities are nontender, nonswollen and have full range of motion. DIFFERENTIAL DIAGNOSIS: After history and physical exam differential diagnosis was considered for abdominal pain including but not limited to appendicitis, cholecystitis, gastritis and urinary tract infection. Medical Decision Making Data Points Result Diagram: 06/19/1820 06/19/1820 Laboratory Hematology Test 06/19/18 09:11 06/19/18 09:20 Urine Color Yellow Urine Clarity Slightly-cloudy Urine pH 6.0 pH (4.8-9.5) Urine Specific [place] 1.025 Urine Protein Negative mg/dL (NEGATIVE) Urine Glucose (UA) Negative mg/dL (NEGATIVE) Urine Ketones 20 mg/dL (NEGATIVE) Urine Blood Negative (NEGATIVE) Urine Nitrite Negative (NEGATIVE) Urine Bilirubin Negative (NEGATIVE) Urine Urobilinogen Negative mg/dL (0.2-1.9) Urine Leukocyte Esterase Negative (NEGATIVE) Urine RBC None /HPF (0-2/HPF) Urine WBC 5 /HPF (0-5/HPF) Urine Squamous Epithelial Cells Many /LPF (</=FEW) Urine Amorphous Crystals Few /HPF Urine Bacteria Negative /HPF (NONE-FEW) Urine Mucus Few /HPF (NONE-FEW) Red Blood Count 5.02 M/uL (4.17-5.56) Mean Corpuscular Volume 85.2 fL (80.0-96.0) Mean Corpuscular Hemoglobin 28.5 pg (26.0-33.0) Mean Corpuscular Hemoglobin Concent 33.4 g/dL (32.0-36.0) Red Cell Distribution Width 13.8 % (11.5-14.5) Mean Platelet Volume 7.6 fL (7.2-11.1) Neutrophils (%) (Auto) 79.5 % (39.4-72.5) Lymphocytes (%) (Auto) 12.5 % (17.6-49.6) Monocytes (%) (Auto) 6.8 % (4.1-12.4) Eosinophils (%) (Auto) 0.7 % (0.4-6.7) Basophils (%) (Auto) 0.5 % (0.3-1.4) Nucleated RBC Relative Count (auto) 0.0 /100WBC Neutrophils # (Auto) 8.2 K/uL (2.0-7.4) Lymphocytes # (Auto) 1.3 K/uL (1.3-3.6) Monocytes # (Auto) 0.7 K/uL (0.3-1.0) Eosinophils # (Auto) 0.1 K/uL (0.0-0.5) Basophils # (Auto) 0.1 K/uL (0.0-0.1) Nucleated RBC Absolute Count (auto) 0.00 K/uL Sodium Level 138 mmol/L (137-145) Potassium Level 3.9 mmol/L (3.5-5.0) Chloride Level 103 mmol/L (98-107) Carbon Dioxide Level 24 mmol/L (22-31) Blood Urea Nitrogen 9 mg/dl (7-18) Creatinine 0.70 mg/dl (0.52-1.04) Glomerular Filtration Rate Calc > 60.0 Random Glucose 85 mg/dl (75-110) Calcium Level 9.2 mg/dl (8.4-10.2) Total Bilirubin 0.4 mg/dl (0.2-1.3) Aspartate Amino Transf (AST/SGOT) 24 U/L (0-35) Alanine Aminotransferase (ALT/SGPT) 22 U/L (0-56) Alkaline Phosphatase 83 U/L (0-126) Total Protein 8.0 g/dl (6.3-8.2) Albumin 4.2 g/dl (3.5-5.0) Lipase 27 U/L (23-300) Human Chorionic Gonadotropin, Quant 56794 mIU/ml Chemistry Test 06/19/18 09:11 06/19/18 09:20 Urine Color Yellow Urine Clarity Slightly-cloudy Urine pH 6.0 pH (4.8-9.5) Urine Specific [place] 1.025 Urine Protein Negative mg/dL (NEGATIVE) Urine Glucose (UA) Negative mg/dL (NEGATIVE) Urine Ketones 20 mg/dL (NEGATIVE) Urine Blood Negative (NEGATIVE) Urine Nitrite Negative (NEGATIVE) Urine Bilirubin Negative (NEGATIVE) Urine Urobilinogen Negative mg/dL (0.2-1.9) Urine Leukocyte Esterase Negative (NEGATIVE) Urine RBC None /HPF (0-2/HPF) Urine WBC 5 /HPF (0-5/HPF) Urine Squamous Epithelial Cells Many /LPF (</=FEW) Urine Amorphous Crystals Few /HPF Urine Bacteria Negative /HPF (NONE-FEW) Urine Mucus Few /HPF (NONE-FEW) White Blood Count 10.3 k/uL (4.5-11.0) Red Blood Count 5.02 M/uL (4.17-5.56) Hemoglobin 14.3 g/dL (12.0-16.0) Hematocrit 42.8 % (34.0-47.0) Mean Corpuscular Volume 85.2 fL (80.0-96.0) Mean Corpuscular Hemoglobin 28.5 pg (26.0-33.0) Mean Corpuscular Hemoglobin Concent 33.4 g/dL (32.0-36.0) Red Cell Distribution Width 13.8 % (11.5-14.5) Platelet Count 313 K/uL (150-450) Mean Platelet Volume 7.6 fL (7.2-11.1) Neutrophils (%) (Auto) 79.5 % (39.4-72.5) Lymphocytes (%) (Auto) 12.5 % (17.6-49.6) Monocytes (%) (Auto) 6.8 % (4.1-12.4) Eosinophils (%) (Auto) 0.7 % (0.4-6.7) Basophils (%) (Auto) 0.5 % (0.3-1.4) Nucleated RBC Relative Count (auto) 0.0 /100WBC Neutrophils # (Auto) 8.2 K/uL (2.0-7.4) Lymphocytes # (Auto) 1.3 K/uL (1.3-3.6) Monocytes # (Auto) 0.7 K/uL (0.3-1.0) Eosinophils # (Auto) 0.1 K/uL (0.0-0.5) Basophils # (Auto) 0.1 K/uL (0.0-0.1) Nucleated RBC Absolute Count (auto) 0.00 K/uL Glomerular Filtration Rate Calc > 60.0 Calcium Level 9.2 mg/dl (8.4-10.2) Total Bilirubin 0.4 mg/dl (0.2-1.3) Aspartate Amino Transf (AST/SGOT) 24 U/L (0-35) Alanine Aminotransferase (ALT/SGPT) 22 U/L (0-56) Alkaline Phosphatase 83 U/L (0-126) Total Protein 8.0 g/dl (6.3-8.2) Albumin 4.2 g/dl (3.5-5.0) Lipase 27 U/L (23-300) Human Chorionic Gonadotropin, Quant 39015 mIU/ml Urinalysis Test 06/19/18 09:11 Urine Color Yellow Urine Clarity Slightly-cloudy Urine pH 6.0 pH (4.8-9.5) Urine Specific [place] 1.025 Urine Protein Negative mg/dL (NEGATIVE) Urine Glucose (UA) Negative mg/dL (NEGATIVE) Urine Ketones 20 mg/dL (NEGATIVE) Urine Blood Negative (NEGATIVE) Urine Nitrite Negative (NEGATIVE) Urine Bilirubin Negative (NEGATIVE) Urine Urobilinogen Negative mg/dL (0.2-1.9) Urine Leukocyte Esterase Negative (NEGATIVE) Urine RBC None /HPF (0-2/HPF) Urine WBC 5 /HPF (0-5/HPF) Urine Squamous Epithelial Cells Many /LPF (</=FEW) Urine Amorphous Crystals Few /HPF Urine Bacteria Negative /HPF (NONE-FEW) Urine Mucus Few /HPF (NONE-FEW) ED Course/Re-evaluation ED Course Patient is a 22-year-old female at approximately 8 weeks gestation here with nausea, vomiting which she attributes to morning sickness. Patient was given IV fluid bolus, IV Zofran, basic labs including CBC, CMP, quant hCG, UA which were unremarkable[place] [address]. I completed a bedside ultrasound and found heartbeat in the uterus. Patient does have an official ultrasound next week. Patient had markedly improvement in symptoms after administration of IV fluids. Recommend close PCP follow-up. Patient had not filled her Zofran due to cost however I educated her regarding less expensive means for obtaining ondansetron. Patient voiced understanding of plan. Return precautions were provided. Ondansetron prescription called into [facility] pharmacy. Decision to Disposition Date: June 19, 2018 Decision to Disposition Time: 10:38 Depart Departure Latest Vital Signs Vital Signs Date Time Temp Pulse Resp B/P (MAP) Pulse Ox O2 Delivery O2 Flow Rate FiO2 06/19/18 08:58 97.7 76 18 123/75 95 Room Air Impression: Primary Impression: Nausea & vomiting Additional Impression: Dehydration Condition: Improved Disposition: HOME OR SELF-CARE Patient Instructions: Nausea and Vomiting in (ED) Additional Instructions: Please drink plenty of water. Please take your Zofran 1 tablet every 4-6 hours as needed for nausea and vomiting. Please return promptly if you develop fevers, worsening abdominal pain, inability keep down food or fluids, vaginal bleeding, burning with urination, vaginal discharge. Please follow-up with your [employer] and primary care provider as scheduled. Problem Qualifiers NAS TORRES DO June 19, 2018 08:58
[2018-06-19] MEDS ORDERED: NS(*) 0.9% 1000 ML BAG 1,000 ML IV ONE (09:07)
[2018-06-19] MEDS ORDERED: ONDANSETRON 4 MG/2 ML VIAL IVP ONE (09:10)
[2018-06-19 09:37] LABS: PLATELET COUNT, AUTOMATED 313 K/uL (150-450)
[2018-06-19 10:30] VITALS: BP 109/77
== END 2018-06-19 10:58 | disposition home or self-care (01) ==
LOC: ER 08:57
DX: O26.891 Other specified pregnancy related conditions, first trimester (principal); Z3A.08 8 weeks gestation of pregnancy
CPT/HCPCS: 81001; 83690; 84702; 85025; 96361; 96374; 99284; J2405; J7030; 82040; 82247; 82310; 82374; 82435; 82565; 82947; 84075; 84132; 84155; 84295; 84450; 84460; 84520

== ENCOUNTER → 2018-06-22 | Outpatient (CLI) | payer MEDICAID ==
[2015-01-23 08:41] VITALS: BMI 31.5
== END ==
LOC: LAB 08:24
PROVIDERS: ATTEND Student in an Organized Health Care Education/Training Program
DX: Z34.91 Encounter for supervision of normal pregnancy, unspecified, first trimester (principal)
CPT/HCPCS: 87491; 87591

== ENCOUNTER 2018-08-03 15:15 | Emergency (ER) | payer MEDICAID ==
[2015-01-23 08:41] VITALS: Wt 93.9 kg
[~2018-08-03 15:15] MED LIST changes: -TRAZ50TA34 PO; +TRAZ50TA52 PO
[2018-08-03] MEDS ORDERED: METOCLOPRAMIDE 10 MG/2 ML SDV IVP ONE (15:45)
[2018-08-03] MEDS ORDERED: FAMOTIDINE(*) 20MG/50ML PREMIX 50 ML IVPB ONE (15:45)
[2018-08-03] MEDS ORDERED: NS(*) 0.9% 1000 ML BAG 1,000 ML IV ONE (15:45)
[2018-08-03 16:07] LABS: PLATELET COUNT, AUTOMATED 281 K/uL (150-450)
[2018-08-03 17:30] VITALS: BP 109/61
--- NOTE | 2018-08-03 17:50 | ER Report ---
History and Physical Time Seen By MD: 15:15 Hx. of Stated Complaint: MORNING SICKNESS NOT RELIEVED WITH ZOFRAN, DIARRHEA X 3-4 DAYS HPI/ROS CHIEF COMPLAINT: Vomiting, diarrhea HISTORY OF PRESENT ILLNESS: 23-year-old female is 14 weeks with single intrauterine as previously demonstrate a by Dr. Wallace. Patient states that she has had vomiting throughout her as she had with her prior . She states this has not improved despite entering second trimester. Patient also states that she has multiple sick contacts at school and daycare and feels she may have picked up illness from them. Patient admits to diarrhea 6 times daily over the past 2-3 days. She states that stool is watery and not bloody or black. She states that she has been attempting Zofran and as recommended by Dr. Wallace has attempted rectally but still continues to vomit. Patient reports that she has gained 15 pounds in the past 2 weeks, however feels she has lost a couple pounds over the past 2 days. She feels chills, sinus congestion, notes no chest pain or shortness breath. She notes abdominal pain. Abdominal pain is left upper quadrant. Pain does not radiate. Pain has been present intermittently for 3-4 weeks. Pain is exacerbated by eating, specifically 20-30 minutes after eating. In between meals patient feels gnawing feeling. Patient notes no relieving factors. Patient has not attempted medications for this. She states this has been worse the multiple episodes of vomiting. She notes no urinary symptoms. She has no blood in urine. REVIEW OF SYSTEMS: Constitutional: above Eyes: no blurred vision ENT: No sore throat. Cardiovascular: No chest pain, no palpitations. Respiratory: No cough, no shortness of breath. Gastrointestinal: above Genitourinary: No hematuria. Musculoskeletal: No back pain. Skin: No rashes. Neurological: mild headache; pt states she had a 'migraine' that she feels she got due to dehydration Remainder of the 14 system rev: Yes Allergies: Coded Allergies: No Known Drug Allergies (Unverified , 08/03/18) Home Meds Active Scripts Ondansetron Hcl (ZOFRAN) 4 Mg Tablet, 4 MG PO Q6H PRN for NAUSEA/VOMITING, #20 TAB 0 Refills Prov:JEANETTE WALLACE DO 06/17/18 Doxylamine/Pyridoxine Hcl (DICLEGIS DR 10-10 MG TABLET) 1 Each Tablet.dr, 1 EACH PO DIRECTED, #60 TAB 1 Refill 2 tabs PO QHS if still having nausea may take 1 tab in the morning and 1 tab at noon (MAX 4 tabs daily) Prov:MARIVEL STALEY MD 06/15/18 Vits W-Ca,Fe,Fa(<1MG) ( VITAMINS) 1 Each Tablet, 1 EACH PO DAILY, #90 TAB 3 Refills Prov:MARIVEL STALEY MD 06/15/18 Hx Smoking: Yes Smoking Status: Never Smoker, Light Tobacco Smoker Exposure to Second Hand Smoke?: No Hx Alcohol Use: Yes Constitutional Vital Sign - Last 24 Hours 08/03/18 08/03/18 08/03/18 08/03/18 15:21 15:30 15:45 16:15 Temp 97.3 Pulse 92 89 89 87 Resp 16 B/P (MAP) 132/77 120/78 (92) Pulse Ox 95 90 90 94 O2 Delivery Room Air 08/03/18 08/03/18 08/03/18 08/03/18 16:30 17:00 17:15 17:30 Pulse 83 74 72 79 B/P (MAP) 113/71 (85) 108/62 (77) 109/61 (77) Pulse Ox 96 96 98 100 08/03/18 17:45 Pulse 96 Physical Exam General Appearance: The patient is alert, has no immediate need for airway protection and no signs of toxicity. Eyes: Pupils equal and round no pallor or injection. ENT, Mouth: Mucous membranes are moist. Respiratory: There are no retractions, lungs are clear to auscultation. Cardiovascular: Regular rate and rhythm. no m/r/g Gastrointestinal: left upper quadrant abdominal tenderness, no peritoneal sgs, no guarding, no distension. BS pos and nl in all 4 quadrants Neurological: alert, oriented, no gross deficits Skin: Warm and dry, no rashes. Musculoskeletal: Extremities are nontender, nonswollen and have full range of motion. DIFFERENTIAL DIAGNOSIS: After history and physical exam differential diagnosis was considered for nausea and vomiting of , hyperemesis, molar ,abdominal pain including but not limited to appendicitis, cholecystitis, gastritis and urinary tract infection. Medical Decision Making Data Points Result Diagram: 08/03/18 1555 08/03/18 1555 Laboratory Hematology Test 08/03/18 15:55 08/03/18 16:10 Red Blood Count 4.79 M/uL (4.17-5.56) Mean Corpuscular Volume 84.8 fL (80.0-96.0) Mean Corpuscular Hemoglobin 29.5 pg (26.0-33.0) Mean Corpuscular Hemoglobin Concent 34.7 g/dL (32.0-36.0) Red Cell Distribution Width 14.4 % (11.5-14.5) Mean Platelet Volume 7.9 fL (7.2-11.1) Neutrophils (%) (Auto) 76.7 % (39.4-72.5) Lymphocytes (%) (Auto) 14.6 % (17.6-49.6) Monocytes (%) (Auto) 6.7 % (4.1-12.4) Eosinophils (%) (Auto) 1.4 % (0.4-6.7) Basophils (%) (Auto) 0.6 % (0.3-1.4) Nucleated RBC Relative Count (auto) 0.0 /100WBC Neutrophils # (Auto) 7.1 K/uL (2.0-7.4) Lymphocytes # (Auto) 1.4 K/uL (1.3-3.6) Monocytes # (Auto) 0.6 K/uL (0.3-1.0) Eosinophils # (Auto) 0.1 K/uL (0.0-0.5) Basophils # (Auto) 0.1 K/uL (0.0-0.1) Nucleated RBC Absolute Count (auto) 0.00 K/uL Sodium Level 139 mmol/L (137-145) Potassium Level 3.6 mmol/L (3.5-5.0) Chloride Level 103 mmol/L (98-107) Carbon Dioxide Level 22 mmol/L (22-31) Blood Urea Nitrogen 8 mg/dl (7-18) Creatinine 0.60 mg/dl (0.52-1.04) Glomerular Filtration Rate Calc > 60.0 Random Glucose 80 mg/dl (75-110) Calcium Level 9.2 mg/dl (8.4-10.2) Total Bilirubin 0.4 mg/dl (0.2-1.3) Aspartate Amino Transf (AST/SGOT) 21 U/L (0-35) Alanine Aminotransferase (ALT/SGPT) 29 U/L (0-56) Alkaline Phosphatase 68 U/L (0-126) Total Protein 7.8 g/dl (6.3-8.2) Albumin 4.0 g/dl (3.5-5.0) Lipase 25 U/L (23-300) Urine Color Yellow Urine Clarity Slightly-cloudy Urine pH 5.0 pH (4.8-9.5) Urine Specific [place] 1.031 Urine Protein 30 mg/dL (NEGATIVE) Urine Glucose (UA) Negative mg/dL (NEGATIVE) Urine Ketones 80 mg/dL (NEGATIVE) Urine Blood Negative (NEGATIVE) Urine Nitrite Negative (NEGATIVE) Urine Bilirubin Negative (NEGATIVE) Urine Urobilinogen Negative mg/dL (0.2-1.9) Urine Leukocyte Esterase Trace (NEGATIVE) Urine RBC 2 /HPF (0-2/HPF) Urine WBC 7 /HPF (0-5/HPF) Urine Squamous Epithelial Cells Many /LPF (</=FEW) Urine Bacteria Few /HPF (NONE-FEW) Urine Hyaline Casts Few /LPF (NONE-FEW) Urine Mucus Few /HPF (NONE-FEW) Chemistry Test 08/03/18 15:55 08/03/18 16:10 White Blood Count 9.3 k/uL (4.5-11.0) Red Blood Count 4.79 M/uL (4.17-5.56) Hemoglobin 14.1 g/dL (12.0-16.0) Hematocrit 40.7 % (34.0-47.0) Mean Corpuscular Volume 84.8 fL (80.0-96.0) Mean Corpuscular Hemoglobin 29.5 pg (26.0-33.0) Mean Corpuscular Hemoglobin Concent 34.7 g/dL (32.0-36.0) Red Cell Distribution Width 14.4 % (11.5-14.5) Platelet Count 281 K/uL (150-450) Mean Platelet Volume 7.9 fL (7.2-11.1) Neutrophils (%) (Auto) 76.7 % (39.4-72.5) Lymphocytes (%) (Auto) 14.6 % (17.6-49.6) Monocytes (%) (Auto) 6.7 % (4.1-12.4) Eosinophils (%) (Auto) 1.4 % (0.4-6.7) Basophils (%) (Auto) 0.6 % (0.3-1.4) Nucleated RBC Relative Count (auto) 0.0 /100WBC Neutrophils # (Auto) 7.1 K/uL (2.0-7.4) Lymphocytes # (Auto) 1.4 K/uL (1.3-3.6) Monocytes # (Auto) 0.6 K/uL (0.3-1.0) Eosinophils # (Auto) 0.1 K/uL (0.0-0.5) Basophils # (Auto) 0.1 K/uL (0.0-0.1) Nucleated RBC Absolute Count (auto) 0.00 K/uL Glomerular Filtration Rate Calc > 60.0 Calcium Level 9.2 mg/dl (8.4-10.2) Total Bilirubin 0.4 mg/dl (0.2-1.3) Aspartate Amino Transf (AST/SGOT) 21 U/L (0-35) Alanine Aminotransferase (ALT/SGPT) 29 U/L (0-56) Alkaline Phosphatase 68 U/L (0-126) Total Protein 7.8 g/dl (6.3-8.2) Albumin 4.0 g/dl (3.5-5.0) Lipase 25 U/L (23-300) Urine Color Yellow Urine Clarity Slightly-cloudy Urine pH 5.0 pH (4.8-9.5) Urine Specific [place] 1.031 Urine Protein 30 mg/dL (NEGATIVE) Urine Glucose (UA) Negative mg/dL (NEGATIVE) Urine Ketones 80 mg/dL (NEGATIVE) Urine Blood Negative (NEGATIVE) Urine Nitrite Negative (NEGATIVE) Urine Bilirubin Negative (NEGATIVE) Urine Urobilinogen Negative mg/dL (0.2-1.9) Urine Leukocyte Esterase Trace (NEGATIVE) Urine RBC 2 /HPF (0-2/HPF) Urine WBC 7 /HPF (0-5/HPF) Urine Squamous Epithelial Cells Many /LPF (</=FEW) Urine Bacteria Few /HPF (NONE-FEW) Urine Hyaline Casts Few /LPF (NONE-FEW) Urine Mucus Few /HPF (NONE-FEW) Urinalysis Test 08/03/18 16:10 Urine Color Yellow Urine Clarity Slightly-cloudy Urine pH 5.0 pH (4.8-9.5) Urine Specific [place] 1.031 Urine Protein 30 mg/dL (NEGATIVE) Urine Glucose (UA) Negative mg/dL (NEGATIVE) Urine Ketones 80 mg/dL (NEGATIVE) Urine Blood Negative (NEGATIVE) Urine Nitrite Negative (NEGATIVE) Urine Bilirubin Negative (NEGATIVE) Urine Urobilinogen Negative mg/dL (0.2-1.9) Urine Leukocyte Esterase Trace (NEGATIVE) Urine RBC 2 /HPF (0-2/HPF) Urine WBC 7 /HPF (0-5/HPF) Urine Squamous Epithelial Cells Many /LPF (</=FEW) Urine Bacteria Few /HPF (NONE-FEW) Urine Hyaline Casts Few /LPF (NONE-FEW) Urine Mucus Few /HPF (NONE-FEW) ED Course/Re-evaluation ED Course 23-year-old female 14 weeks presents with vomiting and diarrhea. Though she states this is morning sickness, it would not be expected at this time a . Patient does admit to multiple sick contacts due to school and daycare and family. She has signs of mild dehydration, and urinalysis shows ketones as consistent with her symptoms. heart tones obtained and are 150. Patient feels significantly improved after IV fluids and Reglan. She is given Pepcid in the ED and I recommend Pepcid as outpatient for gastritis symptoms. Of note, patient has been offered other prescriptions but states she cannot pick these up as she cannot afford them. Patient does state that she is waiting for Medicare to come through and will crab picker medication at that time. The time of discharge, patient is tolerating by mouth and is comfortable for discharge and understands strict return precautions. Decision to Disposition Date: Aug 03, 2018 Decision to Disposition Time: 17:46 Depart Departure Latest Vital Signs Vital Signs Date Time Temp Pulse Resp B/P (MAP) Pulse Ox O2 Delivery O2 Flow Rate FiO2 08/03/18 17:45 96 08/03/18 17:30 109/61 (77) 100 08/03/18 15:21 97.3 16 Room Air Impression: Primary Impression: Nausea & vomiting Additional Impression: Abdominal pain in female Condition: Improved Disposition: HOME OR SELF-CARE Referrals: JEAENTTE WALLACE DO (PCP) 2 Days Patient Instructions: Abdominal Pain (ED), Nausea and Vomiting in (ED) Additional Instructions: As we discussed, I recommend picking up the medication that Dr. Wallace recommends for nausea if zofran is not working. I also recommend you starting pepcid (famotidine) over the counter for your abdominal pain. Please return if you have worsening symptoms, not tolerating fluids, or any concerns. Problem Qualifiers Primary Impression: Nausea & vomiting Vomiting type: unspecified Vomiting Intractability: unspecified Qualified Codes: R11.2 - Nausea with vomiting, unspecified SALBADOR BRODY MD Aug 03, 2018 17:50
== END 2018-08-03 18:03 | disposition home or self-care (01) ==
LOC: ER 15:24
DX: O21.8 Other vomiting complicating pregnancy (principal); O26.891 Other specified pregnancy related conditions, first trimester; Z3A.14 14 weeks gestation of pregnancy
CPT/HCPCS: 81001; 83690; 85025; 96361; 96365; 96375; 99284; J2765; J7030; 82040; 82247; 82310; 82374; 82435; 82565; 82947; 84075; 84132; 84155; 84295; 84450; 84460; 84520

== ENCOUNTER → 2018-09-17 | Outpatient (CLI) | payer MEDICAID ==
[2015-01-23 08:41] VITALS: BMI 31.5
[~2018-09-17] MED LIST changes: +LORA-802 PO; +ONDA4TAB9 PO; +ONDA4VIA3 INJ; +PROM-110 PO; +PROM25VI14 IVP; +[UNRECOGNIZED DRUG - CODE] IV
== END ==
LOC: RAD 10:41
PROVIDERS: ATTEND Student in an Organized Health Care Education/Training Program
DX: Z3A.15 15 weeks gestation of pregnancy (principal)